=== PATIENT | female | born 1940 | race Hispanic/Latino ===

== ENCOUNTER 2025-08-28 21:07 | Emergency (ER) | payer MEDICARE ==
--- NOTE | 2025-08-29 08:07 | EKG ---
[facility] Test Date: 2025-08-28 Test Time: 21:12:51 Pat Name: TRACI HERNANDEZ Department: ED Room: Gender: F Processing Inspector: [id number] : 1940 Requested By: KYLIE CYR Order Number: [id number] Reading MD: Seamus Hairston Measurements Intervals [place] Rate: 75 P: 57 NE: 206 QRS: -41 QRSD: 76 T: 59 QT: 392 QTc: 438 Interpretive Statements Sinus rhythm Borderline prolonged NE interval Left axis deviation No previous ECG available for comparison Electronically Signed On 08-30-2025 08:22:14 [employer] by Seamus Hairston Please click the below link to view image of tracing.
--- NOTE | 2025-08-29 14:19 | HMCIMG ---
STUDY: X-RAY OF THE CHEST, 1 VIEW HISTORY: Chest pain. TECHNIQUE: A single frontal view of the chest is submitted for interpretation. COMPARISON: None provided. FINDINGS: Pulmonary segundo: Pulmonary vasculature and bronchovascular markings are within normal limits. No focal consolidation, infiltrate, or discrete pulmonary nodule is identified. Cardiac silhouette: Cardiac silhouette is normal in size and contour. Mediastinum and jamal: Mediastinal contours are within normal limits without widening. Hilar structures are normal in size and configuration. Osseous structures: Visualized ribs, clavicles, scapulae, and thoracic spine show no acute fracture or destructive osseous lesion. Miscellaneous: No pleural effusion or pneumothorax is demonstrated. Costophrenic angles are sharp bilaterally. No free subdiaphragmatic air is seen. IMPRESSION: * No acute cardiopulmonary abnormality. /[place]
== END 2025-08-28 21:12 | disposition left against medical advice (07) ==
LOC: EDH 21:07
DX: R07.9 Chest pain, unspecified (principal); Z53.21 Procedure and treatment not carried out due to patient leaving prior to being seen by health care provider
CPT/HCPCS: 71045; 93005; 99281